=== PATIENT | female | born 1960 | race Caucasian/White ===

== ENCOUNTER 2020-02-29 23:05 | Emergency (ER) | payer MEDICARE ==
[~2020-02-29] VITALS: Ht 160 cm; Wt 93.2 kg
[2020-02-29 23:40] VITALS: BP 139/65
[2020-02-29] MEDS ORDERED: OXYC-325 PO (23:49)
[2020-02-29] MEDS ORDERED: ORPH100T PO (23:49)
--- NOTE | 2020-02-29 23:49 | PHYS DOC ---
General Adult EDM: Chief Complaint: HIP PAIN HPI: HPI: Patient is a 59 year old [f__sex] who presents with [] Review of Systems: Review of Systems: Constitutional: Denies fever or chills. [] Eyes: Denies change in visual acuity. [] HENT: Denies nasal congestion or sore throat. [] Respiratory: Denies cough or shortness of breath. [] Cardiovascular: Denies chest pain or edema. [] GI: Denies abdominal pain, nausea, vomiting, bloody stools or diarrhea. [] : Denies dysuria. [] Musculoskeletal: Denies back pain or joint pain. [] Integument: Denies rash. [] Neurologic: Denies headache, focal weakness or sensory changes. [] Endocrine: Denies polyuria or polydipsia. [] Lymphatic: Denies swollen glands. [] Psychiatric: Denies depression or anxiety. [] Heart Score: Risk Factors: Risk Factors: DM, Current or recent (<one month) smoker, HTN, HLP, family history of CAD, obesity. Risk Scores: Score 0 - 3: 2.5% MACE over next 6 weeks - Discharge Home Score 4 - 6: 20.3% MACE over next 6 weeks - Admit for Clinical Observation Score 7 - 10: 72.7% MACE over next 6 weeks - Early Invasive Strategies Physical Exam: PE: Constitutional: Well developed, well nourished, no acute distress, non-toxic appearance. [] HENT: Normocephalic, atraumatic, bilateral external ears normal, oropharynx moist, no oral exudates, nose normal. [] Eyes: PERRLA, EOMI, conjunctiva normal, no discharge. [] Neck: Normal range of motion, no tenderness, supple, no stridor. [] Cardiovascular:Heart rate regular rhythm, no murmur [] Lungs & Thorax: Bilateral breath sounds clear to auscultation [] Abdomen: Bowel sounds normal, soft, no tenderness, no masses, no pulsatile masses. [] Skin: Warm, dry, no erythema, no rash. [] Back: No tenderness, no CVA tenderness. [] Extremities: No tenderness, no cyanosis, no clubbing, ROM intact, no edema. [] Neurologic: Alert and oriented X 3, normal motor function, normal sensory function, no focal deficits noted. [] Psychologic: Affect normal, judgement normal, mood normal. [] EKG: EKG: [] Radiology/Procedures: Radiology/Procedures: [] Course & Med Decision Making: Course & Med Decision Making Pertinent Labs and Imaging studies reviewed. (See chart for details) [] Dragon Disclaimer: Dragon Disclaimer: This electronic medical record was generated, in whole or in part, using a voice recognition dictation system. Departure Departure Impression: Primary Impression: Strain of right hip Qualified Codes: S76.011A - Strain of muscle, fascia and tendon of right hip, initial encounter Disposition: HOME, SELF-CARE Condition: STABLE Referrals: NO PCP (PCP) MELL WONG MD Patient Instructions: Crutch Use, [id number], Hip Pain Scripts Orphenadrine Citrate (ORPHENADRINE CITRATE) 100 Mg Tablet.er 100 MG PO BID, #14 TAB Prov: RAFY CRAWFORD DO 02/29/20 Oxycodone HCl/Acetaminophen (Percocet 5-325 mg Tablet) 1 Each Tablet 0.5-1 TAB PO Q6HRS PRN for PAIN MDD 2 Tablet(s), #10 TAB 0 Refills Prov: RAFY CRAWFORD DO 02/29/20 RAFY CRAWFORD DO February 29, 2020 23:49
[2020-02-29] MEDS ORDERED: oxyCODONE/APAP 5/325 1 TAB TABLET PO ONE (23:55)
[2020-02-29] MEDS ORDERED: ORPHENADRINE CITRATE 60 MG/2 ML VIAL. IM ONE (23:55)
--- NOTE | 2020-03-01 00:02 | RAD ---
AP pelvis to include AP and lateral radiographs of the right hip 02/29/2020 CLINICAL HISTORY: Right hip pain. Popping sound. An AP portable digital radiograph of the pelvis to include both hips was obtained. AP and lateral portable digital radiographs of the right hip were obtained. No pelvic bone fracture is seen. No fracture or dislocation of either hip is noted. Mild to moderate degenerative changes are seen involving both hip joints. Mild degenerative changes are seen involving both SI joints. IMPRESSION: No acute osseous abnormality is seen. Electronically signed by: Rigo Kelly MD (02/29/2020 11:59 PM) [id number]
== END 2020-03-01 00:13 | disposition home or self-care (01) ==
LOC: ER 23:05
DX: S76.011A Strain of muscle, fascia and tendon of right hip, initial encounter (principal); X50.9XXA Other and unspecified overexertion or strenuous movements or postures, initial encounter; Y93.89 Activity, other specified; Y92.89 Other specified places as the place of occurrence of the external cause; Y99.8 Other external cause status
CPT/HCPCS: 73502; 96372; 99284; J2360

== ENCOUNTER 2020-03-13 21:58 | Emergency (ER) | payer MEDICARE ==
[~2020-03-13] VITALS: Ht 160 cm; Wt 90.9 kg
[~2020-03-13 21:58] MED LIST: ORPH100T PO; OXYC-325 PO
[2020-03-13 22:40] VITALS: BP 119/67
[2020-03-14] MEDS ORDERED: DICL50TA4 PO (01:05)
--- NOTE | 2020-03-14 01:06 | PHYS DOC ---
Past Medical History Past Medical History: Anxiety, Depression, Hypertension, Schizophrenia Past Surgical History: Other Additional Past Surgical Histo: Cataract, Thumb, Left foot Smoking Status: Current Every Day Smoker Alcohol Use: Occasionally Drug Use: None General Adult EDM: Chief Complaint: FOOT INJURY PAIN HPI: HPI: Patient is a 59 year old female who presents via EMS with report of right foot pain. Patient states that she had stepped on a small plastic piece earlier in the day and then stubbed her toe later on. She states that since that happened, she has not been able to walk on her foot because it hurts too much. She rates pain as moderate when she is not on her foot. She denies any other injuries. [] Review of Systems: Review of Systems: Constitutional: Denies fever or chills. [] Respiratory: Denies cough or shortness of breath. [] Cardiovascular: Denies chest pain or edema. [] Musculoskeletal: Complains of right foot pain. [] Integument: Denies rash. [] Neurologic: Denies headache, focal weakness or sensory changes. [] Heart Score: Risk Factors: Risk Factors: DM, Current or recent (<one month) smoker, HTN, HLP, family history of CAD, obesity. Risk Scores: Score 0 - 3: 2.5% MACE over next 6 weeks - Discharge Home Score 4 - 6: 20.3% MACE over next 6 weeks - Admit for Clinical Observation Score 7 - 10: 72.7% MACE over next 6 weeks - Early Invasive Strategies Allergies: Allergies: Allergies Coded Allergies Type Severity Reaction Last Updated Verified prednisone Allergy Unknown 03/13/20 Yes Uncoded Allergies Type Severity Reaction Last Updated Verified STEROIDS Allergy Unknown 03/13/20 Physical Exam: PE: Constitutional: Well developed, well nourished, no acute distress, non-toxic appearance. [] Neck: Normal range of motion, no tenderness, supple, no stridor. [] Cardiovascular: Regular rate and rhythm [] Lungs & Thorax: Bilateral breath sounds clear to auscultation [] Skin: Warm, dry, no erythema, no rash. [] Extremities: Examination of right foot demonstrates tenderness to palpation around the first metatarsal phalangeal joint. There is no soft tissue swelling or ecchymosis noted. [] Current Patient Data: Vital Signs: Vital Signs Date Time Temp Pulse Resp B/P (MAP) Pulse Ox O2 Delivery O2 Flow Rate FiO2 5/31/20 22:40 97.9 88 20 119/67 (84) 95 Room Air 97.9 EKG: EKG: [] Radiology/Procedures: Radiology/Procedures: [] Course & Med Decision Making: Course & Med Decision Making Pertinent Labs and Imaging studies reviewed. (See chart for details) [] Dragon Disclaimer: Dragon Disclaimer: This electronic medical record was generated, in whole or in part, using a voice recognition dictation system. Departure Departure Impression: Primary Impression: Contusion of right foot Qualified Codes: S90.31XA - Contusion of right foot, initial encounter Disposition: HOME, SELF-CARE Condition: STABLE Referrals: UNKNOWN PCP NAME (PCP) Patient Instructions: Foot Contusion Scripts Diclofenac Sodium (DICLOFENAC SODIUM) 50 Mg Tablet. 1 TAB PO BID PRN for PAIN, #20 TAB Prov: MIGUEL NAVA Jr. DO 03/14/20 MIGUEL NAVA Jr. DO Mar 14, 2020 01:06
--- NOTE | 2020-03-14 01:21 | RAD ---
EXAM: AP, oblique and lateral views of the right foot DATE: 03/14/2020 12:15 AM INDICATION: Stubbed toe, right foot injury, right foot pain COMPARISON: No Prior FINDINGS/ IMPRESSION: No evidence of acute fracture or dislocation. Hallux MTP joint degenerative changes are seen with joint space effacement subchondral cystic change. Decreased bone mineral density. Calcaneal enthesopathy. Electronically signed by: Rex Kapadia MD (03/14/2020 1:18 AM) RUBIA
== END 2020-03-14 01:17 | disposition home or self-care (01) ==
LOC: ER 21:58
DX: S90.31XA Contusion of right foot, initial encounter (principal); F20.9 Schizophrenia, unspecified; I10 Essential (primary) hypertension; F17.200 Nicotine dependence, unspecified, uncomplicated; Z88.5 Allergy status to narcotic agent; Z88.8 Allergy status to other drugs, medicaments and biological substances; W22.8XXA Striking against or struck by other objects, initial encounter; Y93.89 Activity, other specified; Y92.89 Other specified places as the place of occurrence of the external cause; Y99.8 Other external cause status
CPT/HCPCS: 73630; 99283

== ENCOUNTER 2020-07-04 00:32 | Emergency (ER) | payer MEDICARE ==
[~2020-07-04] VITALS: Ht 154.9 cm; Wt 95.5 kg
[~2020-07-04 00:32] MED LIST changes: +DICL50TA4 PO
[2020-07-04 01:39] LABS: BILIRUBIN,URINE NEGATIVE (NEG); CLARITY,URINE CLEAR; COLOR,URINE YELLOW; NITRITE,URINE NEGATIVE (NEG); PROTEIN,URINE NEGATIVE (NEG-TRACE); UROBILINOGEN,URINE 0.2 mg/dL (0.2 mg/dL)
[2020-07-04 01:39] LABS: BASO # 0.1 x10^3/uL (0.0-0.2); BASO % 1 % (0-3); EOS # 0.1 x10^3/uL (0.0-0.7); EOS % 1 % (0-3); HEMATOCRIT 46.2 % (36.0-47.0); HEMOGLOBIN 15.7 g/dL (12.0-15.5); LYMPH # 2.6 x10^3/uL (1.0-4.8); LYMPH % 20 % (24-48); MEAN CORPUSCULAR HEMOGLOBIN 32 pg (25-35); MEAN CORPUSCULAR HGB CONC 34 g/dL (31-37); MEAN CORPUSCULAR VOLUME 94 fL (79-100); MONO # 1.1 x10^3/uL (0.0-1.1); MONO % 9 % (0-9); NEUT # 8.9 x10^3/uL (1.8-7.7); NEUT % 69 % (31-73); PLATELET COUNT 281 x10^3/uL (140-400); RED BLOOD COUNT 4.93 x10^6/uL (3.50-5.40); RED CELL DISTRIBUTION WIDTH 13.5 % (11.5-14.5); WHITE BLOOD COUNT 12.8 x10^3/uL (4.0-11.0)
[2020-07-04 01:44] LABS: CALCIUM 9.6 mg/dL (8.5-10.1); CREATININE 0.9 mg/dL (0.6-1.0); GFR 63.9; POTASSIUM 3.9 mmol/L (3.5-5.1)
[2020-07-04 01:45] LABS: BARBITURATES NEG (NEG); BENZODIAZEPINES NEG (NEG); CANNABINOIDS POS (NEG); COCAINE NEG (NEG); METHADONE NEG (NEG); OPIATES NEG (NEG); PHENCYCLIDINE NEG (NEG)
[2020-07-04 01:46] LABS: BACTERIA,URINE MOD /HPF (0-FEW); HYALINE CASTS, URINE MODERATE /HPF; RBC,URINE OCC /HPF (0-2); SQUAMOUS EPITHELIAL CELL,UR MOD /LPF
[2020-07-04 01:49] LABS: AMPHETAMINE/METHAMPHETAMINE NEG (NEG)
--- NOTE | 2020-07-04 04:36 | PHYS DOC ---
Past Medical History Past Medical History: Anxiety, Depression, Hypertension, Schizophrenia, Other Additional Past Medical Histor: MULTIPLE PERSONALITY DISORDER (MELANY FOSTER MD) Past Surgical History: Other Additional Past Surgical Histo: Cataract, Thumb, Left foot (MELANY FOSTER MD) Smoking Status: Current Every Day Smoker Alcohol Use: Occasionally Drug Use: None Social History Narrative: HX OF COCAINE AND ACID (MELANY FOSTER MD) General Adult EDM: Chief Complaint: PSYCH EVALUATION HPI: HPI: Patient is a 60 year old female with a history of schizophrenia who presents to the Emergency Room after police were called to her home. According to EMS, multiple neighbors heard the patient yelling and arguing and called the police. Upon police arrival, patient was yelling at hallucinations. 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 She states the medications give her leg cramps and that she does not need the medications. Patient states she does not believe she has hallucinations. She denies wanting to hurt herself or others. She states she is going to a rockstar tomorrow as long as no one "gets her." Patient is concerned about gunshots she keeps hearing since arriving at the hospital. (MELANY FOSTER MD) Review of Systems: Review of Systems: General: Denies fever, chills, sweats, fatigue Eyes: Denies drainage, blurred vision, eye redness HENT: Denies rhinorrhea, sore throat, earache Respiratory: Denies cough, shortness of breath, wheezing Cardiac: Denies edema, palpitations, chest pain GI: Denies abdominal pain, Nausea, vomiting MSK: Denies back pain, neck pain Skin: Denies rash, jaundice Neuro: Denies headache, dizziness Psychiatric: Denies SI/HI (MELANY FOSTER MD) Heart Score: Risk Factors: Risk Factors: DM, Current or recent (<one month) smoker, HTN, HLP, family history of CAD, obesity. Risk Scores: Score 0 - 3: 2.5% MACE over next 6 weeks - Discharge Home Score 4 - 6: 20.3% MACE over next 6 weeks - Admit for Clinical Observation Score 7 - 10: 72.7% MACE over next 6 weeks - Early Invasive Strategies (MELANY FOSTER MD) Allergies: Allergies: Allergies Coded Allergies Type Severity Reaction Last Updated Verified prednisone Allergy Unknown 03/13/20 Yes Uncoded Allergies Type Severity Reaction Last Updated Verified STEROIDS Allergy Unknown 03/13/20 (MELANY FOSTER MD) Physical Exam: PE: General: Awake, alert, NAD. Well Nourished, well hydrated. Cooperative HEENT: Atraumatic, EOMI, PERRL, airway patent, moist oral mucosa Neck: Supple, trachea midline Respiratory: CTA bilaterally, normal effort, no wheezing/crackles CV: RRR, no murmur, cap refill <2 GI: Soft, nondistended, nontender, no masses MSK: No obvious deformities Skin: Warm, dry, intact Neuro: A&O x3, speech NL, sensory and motor grossly intact, no focal deficits Psych: acute psychosis, hallucinating, paranoid, labile affect, poor insight, not suicidal or homicidal (MELANY FOSTER MD) Current Patient Data: Labs: Laboratory Tests Test 07/04/20 01:01 07/04/20 01:28 White Blood Count 12.8 x10^3/uL (4.0-11.0) H Red Blood Count 4.93 x10^6/uL (3.50-5.40) Hemoglobin 15.7 g/dL (12.0-15.5) H Hematocrit 46.2 % (36.0-47.0) Mean Corpuscular Volume 94 fL (79-100) Mean Corpuscular Hemoglobin 32 pg (25-35) Mean Corpuscular Hemoglobin Concent 34 g/dL (31-37) Red Cell Distribution Width 13.5 % (11.5-14.5) Platelet Count 281 x10^3/uL (140-400) Neutrophils (%) (Auto) 69 % (31-73) Lymphocytes (%) (Auto) 20 % (24-48) L Monocytes (%) (Auto) 9 % (0-9) Eosinophils (%) (Auto) 1 % (0-3) Basophils (%) (Auto) 1 % (0-3) Neutrophils # (Auto) 8.9 x10^3/uL (1.8-7.7) H Lymphocytes # (Auto) 2.6 x10^3/uL (1.0-4.8) Monocytes # (Auto) 1.1 x10^3/uL (0.0-1.1) Eosinophils # (Auto) 0.1 x10^3/uL (0.0-0.7) Basophils # (Auto) 0.1 x10^3/uL (0.0-0.2) Sodium Level 138 mmol/L (136-145) Potassium Level 3.9 mmol/L (3.5-5.1) Chloride Level 101 mmol/L (98-107) Carbon Dioxide Level 26 mmol/L (21-32) Anion Gap 11 (6-14) Blood Urea Nitrogen 12 mg/dL (7-20) Creatinine 0.9 mg/dL (0.6-1.0) Estimated GFR (Cockcroft-Gault) 63.9 Glucose Level 114 mg/dL (70-99) H Calcium Level 9.6 mg/dL (8.5-10.1) Ethyl Alcohol Level < 10 mg/dL (0-10) Urine Collection Type Unknown Urine Color Yellow Urine Clarity Clear Urine pH 5.0 (<5.0-8.0) Urine Specific [place] 1.020 (1.000-1.030) Urine Protein Negative mg/dL (NEG-TRACE) Urine Glucose (UA) Negative mg/dL (NEG) Urine Ketones (Stick) Negative mg/dL (NEG) Urine Blood Negative (NEG) Urine Nitrite Negative (NEG) Urine Bilirubin Negative (NEG) Urine Urobilinogen Dipstick 0.2 mg/dL (0.2 mg/dL) Urine Leukocyte Esterase Negative (NEG) Urine RBC Occ /HPF (0-2) Urine WBC 1-4 /HPF (0-4) Urine Squamous Epithelial Cells Mod /LPF Urine Bacteria Mod /HPF (0-FEW) Urine Hyaline Casts Moderate /HPF Urine Mucus Marked /LPF Urine Opiates Screen Neg (NEG) Urine Methadone Screen Neg (NEG) Urine Barbiturates Neg (NEG) Urine Phencyclidine Screen Neg (NEG) Urine Amphetamine/Methamphetamine Neg (NEG) Urine Benzodiazepines Screen Neg (NEG) Urine Cocaine Screen Neg (NEG) Urine Cannabinoids Screen Pos (NEG) Urine Ethyl Alcohol Neg (NEG) Laboratory Tests 07/04/20 01:01 Laboratory Tests 07/04/20 01:01 Vital Signs: Vital Signs Date Time Temp Pulse Resp B/P (MAP) Pulse Ox O2 Delivery O2 Flow Rate FiO2 07/04/20 03:12 82 172/73 (106) 96 Room Air 07/04/20 00:32 98.6 18 98.6 (MELANY FOSTER MD) EKG: EKG: [] (MELANY FOSTER MD) Radiology/Procedures: Radiology/Procedures: [] (MELAYN FOSTER MD) Course & Med Decision Making: Course & Med Decision Making Pertinent Labs and Imaging studies reviewed. (See chart for details) Patient is a 60 year old female with a history of schizophrenia who presents to the Emergency Room with acute psychosis due to not taking her medications. Patient does not believe that she has hallucinations or any kind of medical problems. She is not interested in taking her medications. Upon discussion with her there is concern for her ability to keep herself safe. While she denies any suicidal or homicidal ideations, patient does not have an awareness of reality raising concerns that patient may not be able to keep herself safe. I am concerned her lack of awareness of reality may place her in dangerous situations such as walking into traffic while interacting with her hallucinations. Patient also has poor insight into her own mental and physical health which further raises concerns. While in the Emergency Room, she had multiple conversations with herself, continued to bring up concerns about "gunshots" she was hearing, and was excitedly talking about her wedding tomorrow to a famous rockstar. Prior to arrival, patient was having arguments with her hallucinations at her apart ment building leading several neighbors to call the police and for the police to recommend patient be brought to the Emergency Room for psychosis. She does not appear to have any significant social support. 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 Patient was placed in a gown and her personal items were bagged upon her arrival for safety. Basic labs were ordered for psychiatric evaluation. The PAT team was consulted. At this time, patient's psychosis appears to be significant and I have recommended patient be further evaluated by [facility] for possible involuntary psychiatric hold and placement. Patient is agreeable to placement at this time. Patient is medical cleared for psychiatric placement. (MELANY FOSTER MD) Course & Med Decision Making Patient was declined admission at [facility] OR [facility] BECAUSE SHE DOES NOT MEET CRITERIA FOR ADMISSION. Patient was evaluated by PAT TEAM, recommended to [facility] for treatment. Patient was not suicidal or homicidal at time of discharge. (ALDEN GARCIA DO) Bonnie Disclaimer: Dragli Disclaimer: This electronic medical record was generated, in whole or in part, using a voice recognition dictation system. (MELANY FOSTER MD) Departure Departure Impression: Primary Impression: Psychosis Disposition: 01 HOME, SELF-CARE (discharged from the ER, was taken to [place] by [place] for evaluation. ) Condition: STABLE Referrals: UNKNOWN PCP NAME (PCP) Patient Instructions: Psychosis Justicifation of Admission Dx: Justifications for Admission: Justification of Admission Dx: Yes (MELANY FOSTER MD) MELANY FOSTER MD Jul 04, 2020 04:36 ALDEN GARCIA DO Jul 04, 2020 16:16
--- NOTE | 2020-07-04 08:24 | EKG ---
[facility] [address] [place] [address] Test Date: 2020-07-04 Test Time: 06:13:03 Pat Name: AIDEE MATTSON Department: Room: Gender: F Trucking Manager: DOMINIC ER : 1960 Requested By: MELANY FOSTER Order Number: [id number] Reading MD: Measurements Intervals [place] Rate: 75 P: -73 WA: 146 QRS: 47 QRSD: 82 T: 46 QT: 376 QTc: 422 Interpretive Statements SUPRAVENTRICULAR RHYTHM LEFT ATRIAL ABNORMALITY ABNORMAL ECG RI6.02 No previous ECG available for comparison
[2020-07-04 11:00] VITALS: BP 161/56
[2020-07-04] MEDS ORDERED: ZIPRASIDONE 20 MG CAPSULE PO STA (13:02)
== END 2020-07-04 15:19 | disposition home or self-care (01) ==
LOC: ER 00:32
DX: F29 Unspecified psychosis not due to a substance or known physiological condition (principal); Z20.828 Contact with and (suspected) exposure to other viral communicable diseases; R25.2 Cramp and spasm; F20.9 Schizophrenia, unspecified; F32.9 Major depressive disorder, single episode, unspecified; F41.9 Anxiety disorder, unspecified; F17.200 Nicotine dependence, unspecified, uncomplicated; F44.81 Dissociative identity disorder; Z88.5 Allergy status to narcotic agent; Z88.8 Allergy status to other drugs, medicaments and biological substances
CPT/HCPCS: 36415; 80048; 80307; 81001; 85025; 87426; 93005; 99285; G0480; U0003

== ENCOUNTER → 2021-12-12 | Outpatient (CLI) | payer MEDICARE ==
--- NOTE | 2021-12-13 15:14 | KCIC ---
Bilateral digital screening 2-D and 3-D (digital breast tomosynthesis) mammogram: Reason for examination: Routine screening. Comparison: Mammograms from 09/23/2018, 01/07/2020. Interpretation was made with the benefit of CAD. FINDINGS: Breast density: Category B. There are scattered areas of fibroglandular density. No suspicious breast mass, malignant appearing calcifications, or architectural distortion is seen. IMPRESSION: No evidence of malignancy. Assessment: BI-RADS 1. Negative. Recommendation: Routine screening mammograms. The patient will receive a letter with the results in the mail. Patient information will be entered i nto the mammography reminder system with a target recall date for the next mammogram. A reminder efren er will be generated. Electronically signed by: Maribell Dvaison MD (12/13/2021 3:12 PM) [id number]
== END ==
LOC: KCIC MAMMO 09:46
PROVIDERS: ATTEND Family Medicine
DX: Z12.31 Encounter for screening mammogram for malignant neoplasm of breast (principal)
CPT/HCPCS: 77063; 77067

== ENCOUNTER → 2022-01-04 | Outpatient (CLI) | payer MEDICARE ==
--- NOTE | 2022-01-04 16:39 | KCIC ---
XR LUMBAR SPINE 2-3V History: Reason: Spinal enthesopathy. Chronic back pain. / Spl. Instructions: / History: Technique: 3 views lumbar spine. Comparison: None. Findings: Mild rightward curvature of the thoracal lumbar spine centered at T12-L1. Grade 1 anterolisthesis L3 on L4. Normal vertebral body height. No acute fracture. Moderate degenerative disc changes most promi nent L5-S1. Facet arthropathy. Vascular calcifications. Impression: 1. Moderate lumbar spondylosis with rightward curvature. Electronically signed by: Paxton Caballero DO (01/04/2022 4:37 PM) [id number]
== END ==
LOC: KCIC 13:36
PROVIDERS: ATTEND Nurse Practitioner Family
DX: M47.817 Spondylosis without myelopathy or radiculopathy, lumbosacral region (principal); M48.8X7 Other specified spondylopathies, lumbosacral region; M43.16 Spondylolisthesis, lumbar region; M43.8X5 Other specified deforming dorsopathies, thoracolumbar region; M46.06 Spinal enthesopathy, lumbar region
CPT/HCPCS: 72100